=== PATIENT | female | born 1965 | race Caucasian/White ===

== ENCOUNTER 2021-11-07 09:03 | Outpatient (CLI) | payer MEDICARE, MEDICAID | END 2021-11-07 09:04 | disposition home or self-care (01) | LOC: BICULT 09:03 | PROVIDERS: ATTEND Student in an Organized Health Care Education/Training Program | DX: R74.01 Elevation of levels of liver transaminase levels (principal); R10.11 Right upper quadrant pain; N28.89 Other specified disorders of kidney and ureter; Z90.49 Acquired absence of other specified parts of digestive tract | CPT/HCPCS: 76700 ==

== ENCOUNTER 2022-07-04 12:46 | Outpatient (CLI) | payer MEDICARE, MEDICAID | END 2022-07-04 12:47 | disposition home or self-care (01) | LOC: BICMAMMO 12:46 | PROVIDERS: ATTEND Student in an Organized Health Care Education/Training Program | DX: R92.1 Mammographic calcification found on diagnostic imaging of breast (principal) | CPT/HCPCS: 77066; G0279 ==

== ENCOUNTER 2023-05-17 10:35 | Outpatient (CLI) | payer MEDICARE, MEDICAID | END 2023-05-17 10:36 | disposition home or self-care (01) | LOC: BICMAMMO 10:35 | PROVIDERS: ATTEND Student in an Organized Health Care Education/Training Program | DX: Z13.820 Encounter for screening for osteoporosis (principal); M85.88 Other specified disorders of bone density and structure, other site; Z78.0 Asymptomatic menopausal state | CPT/HCPCS: 77080 ==